=== PATIENT | female | born 1990 | race Caucasian/White ===

== ENCOUNTER 2017-12-09 23:54 | Emergency (ER) | payer MEDICAID ==
[~2017-12-09] VITALS: Ht 157.5 cm; Wt 70.3 kg
[2017-12-10 00:02] VITALS: BP 129/67; Ht 157.5 cm; Wt 70.3 kg
== END 2017-12-10 00:10 | disposition left against medical advice (07) ==
LOC: ED 23:54
DX: Z53.21 Procedure and treatment not carried out due to patient leaving prior to being seen by health care provider (principal)